=== PATIENT | female | born 1990 | race Native Hawaiian/Other Pacific Islander ===

== ENCOUNTER 2017-04-12 16:06 | Emergency (ER) | payer OTHER ==
[~2017-04-12] VITALS: Ht 152.4 cm; Wt 56.7 kg
[2017-04-12 16:15] VITALS: BP 74/47; TEMP 97.6
[2017-04-12 17:10] LABS: PLATELET COUNT 215 K/uL (152-353)
[2017-04-12 17:15] LABS: POTASSIUM 3.8 mmol/L (3.6-5.2); SODIUM 137 mmol/L (136-145)
== END 2017-04-12 18:10 | disposition home or self-care (01) ==
LOC: ED 16:06
PROVIDERS: Family Medicine
DX: K52.9 Noninfective gastroenteritis and colitis, unspecified (principal); E86.0 Dehydration; R19.7 Diarrhea, unspecified; O21.0 Mild hyperemesis gravidarum
CPT/HCPCS: 36415; 80053; 80307; 81000; 81025; 85027; 96361; 96374; 99284; G0479; J2405

== ENCOUNTER 2018-08-06 09:48 | Emergency (ER) | payer OTHER ==
[~2018-08-06] VITALS: Ht 152.4 cm; Wt 58.5 kg
[2018-08-06 10:01] VITALS: TEMP 98.2
[2018-08-06 11:45] VITALS: BP 113/72
== END 2018-08-06 11:45 | disposition home or self-care (01) ==
LOC: ED 09:48
DX: L50.8 Other urticaria (principal)
CPT/HCPCS: 96372; 99282; J2930

== ENCOUNTER 2020-04-01 12:25 | Emergency (ER) | payer OTHER ==
[~2020-04-01] VITALS: Ht 152.4 cm; Wt 58.5 kg
[2020-04-01 12:38] VITALS: TEMP 98.9
[2020-04-01 13:29] VITALS: BP 108/65
== END 2020-04-01 13:29 | disposition home or self-care (01) ==
LOC: ED 12:25
DX: M25.511 Pain in right shoulder (principal); Y93.72 Activity, wrestling; Y92.89 Other specified places as the place of occurrence of the external cause
CPT/HCPCS: 96372; 99283; J1885; J2930

== ENCOUNTER 2020-07-23 13:54 | Emergency (ER) | payer OTHER ==
[~2020-07-23] VITALS: Ht 152.4 cm; Wt 59.0 kg
[2020-07-23 14:18] VITALS: BP 118/67; TEMP 99.1
== END 2020-07-23 16:30 | disposition home or self-care (01) ==
LOC: ED 13:54
DX: J18.9 Pneumonia, unspecified organism (principal); Z20.828 Contact with and (suspected) exposure to other viral communicable diseases; F17.210 Nicotine dependence, cigarettes, uncomplicated
CPT/HCPCS: 87635; 99283; U0003